=== PATIENT | female | born 1990 | race Two or more races ===

== ENCOUNTER 2025-03-11 13:52 | Outpatient (OUT) | payer BC, SELFPAY ==
--- OUTSIDE RECORDS SUMMARY | 2025-03-11 14:00 | XMS_ITS | Clinical Summary ---
Author Organization [facility] Healthcare Address [address] [place] [address] Care Team Providers Care Bowling Ball Grader Name Role Phone Corby Livingston DO Primary Care Provider [phone] Allergies Active Allergy Reactions Criticality Noted Date Comments Penicillins Anaphylaxis,Shortnes s of breath,Unknown High 02/28/2023 Sulfa Antibiotics Anaphylaxis,Shortnes s of breath,Unknown,Wheezing High 02/28/2023 Medications 27-1 MG tabletIndications: Take 1 tablet by mouth in the morning. Active Drospirenone (Slynd) 4 MG tabletIndications: Family planning counseling,Oral contraception initial prescription Take 1 tablet by mouth Daily 84 tablet 3 4 Active sertraline (Zoloft) 50 MG tabletIndications: Depression, unspecified depression type Take 1 tablet (50 mg) by mouth in the morning. 90 tablet 2 4 Active Family History Medical History Relation Name Comments Heart disease Father Hyperlipidemia Father Hypertension Father Stroke Father neurocardiogenic syncope Father Cancer Maternal Grandfather Diabetes Maternal Grandfather Rheum arthritis Maternal Grandmother Diabetes Mother Heart disease Mother Hypertension Mother Hypertension Other Polycystic ovary syndrome Other borderline diabetic Other Dementia Paternal Grandfather Stroke Paternal Grandfather Hyperlipidemia Sister Relation Name Status Comments Father Alive Maternal Grandfather Maternal Grandmother Mother Alive Other Paternal Grandfather Sister 1 sister Son Alive 2 sons Social History Tobacco Use Types Packs/Day Years Used Date Smoking Tobacco: Never Smokeless Tobacco: Never Alcohol Use Standard Drinks/Week Comments Not Currently 0 (1 standard drink = 0.6 oz pure alcohol) none with ; caffeine intake : 1-2 cups per day ; soda [place] Depression Scale Answer Date Recorded [place] Depression Scale Total 0 11/25/2023 The thought of harming myself has occurred to me . 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 on file Not on file Not on file Last Filed Vital Signs Vital Sign Reading Time Taken Comments Blood Pressure 110/74 11/25/2023 11:41 AM EST Pulse - - Temperature - - Respiratory Rate - - Oxygen Saturation - - Inhaled Oxygen Concentration - - Weight 76.2 kg (168 lb) 11/25/2023 11:41 AM EST Height 170.2 cm (5' 7 ) 02/28/2023 2:01 PM EDT Body Mass Index 26.31 02/28/2023 2:01 PM EDT Plan of Treatment Upcoming Encounters Date Type Department Care Team (Late st Contact Info) Description 04/05/2025 4:00 PM EDT Office Visit [facility] [address] [place] D [address] [address] Ester Bronson DO [address] [address] Health Maintenance Due Date Last Done Comments Pap Smear 03/16/2025 03/16/2022 Cervical Cancer Screening 03/29/2025 HPV/Cotest 03/29/2025 03/29/2020 Influenza Vaccine (Season Ended) 2025 Procedures Procedure Name Priority Date/Time Associated Diagnosis Comments PAP SMEAR Routine 03/16/2022 12:00 AM EDT THINPREP TIS PAP REFLEX HPV MRNA E6/E7 (80935) Routine 03/29/2020 from Last 3 Months or Most Recently Relevant to Health Maintenance Results * Pap Smear (03/16/2022 12:00 AM EDT) Swab Cervical swab / Unknown Ester Bronson DO LAB CYTOLOGY ORDERABLES Fi nal Result Performing Organization Address [facility] Co de Phone Number [facility] * THINPREP TIS PAP REFLEX HPV MRNA E6/E7 (86071) (03/29/2020) CLINICAL INFORMATION: None given [facility] LMP: None given [facility] PREV. PAP: None given [facility] PREV. BX: None given [facility] SOURCE: Cervix, Endocervix [facility] STATEMENT OF ADEQUACY: SEE COMMENT [facility] Comment: Satisfactory for evaluation. Endocervical/transformation zone component present. INTERPRETATION /RESULT: Negative for intraepithelial lesion or malignancy. [facility] COMMENT: This Pap test has been evaluated with computer assisted technology. [facility] CYTOTECHNOLOGI ST: SEE COMMENT See Note: [facility] Comment: Reference Range: ZL, CT(ASCP) CT screening location: [place] [address]. COMMENT SEE COMMENT [facility] Comment: EXPLANATORY NOTE: The Pap is a screening test for cervical cancer. It is not a diagnostic test and is subject to false negative and false positive results. It is most reliable when a satisfactory sample, regularly obtained, is submitted with relevant clinical findings and history, and when the Pap result is evaluated along with historic and current clinical information. 03/29/2020 Ester Bronson DO [facility] Final Resu lt Performing Organization Address [facility]/ZIP Co de Phone Number [facility] from Last 3 Months or Most Recently Relevant to Health Maintenance Care Teams Bowling Ball Grader Relationship Specialty Start Date End Date Corby Livingston DO PCP - General Internal Medicine 03/13/23
--- OUTSIDE RECORDS SUMMARY | 2025-03-11 14:00 | XMS_ITS | Clinical Summary ---
Author Organization [facility] Address [address] [place] [address] Phone Care Team Providers Care Medical Pathologist Name Role Phone Unavailable Primary Care Provider Unavailabl e Social History Tobacco Use Types Packs/Day Years Used Date Smoking Tobacco: Never Assessed Comments Unknown Sex and Gender Information Value Date Recorded Sex Assigned at Not on file Legal Sex Female 6:26 PM EST Gender Identity Not on file Sexual Orientation Not on file Plan of Treatment Not on file
--- NOTE | 2025-03-11 14:02 | US_ITS ---
[facility] [place] [id number] Patient Name: YOLANDE LEVIN MRN: [id number] date: 1990 Sex: F Assigned Patient Location: [place] Current Patient Location: [place] Accession/Order Number: [id number] Exam Date: 03/11/2025 15:23 Report Date: 03/11/2025 15:26 At the request of: APRIL COLES Procedure: US thyroid Thyroid ultrasound Reason for exam: Swelling. Mass. Comparison: none Technique: Grayscale and color Doppler images of the thyroid gland were obtained. Findings: The right lobe measures 5.5 x 1.5 x 1.2 cm. Left lobe measures 4.8 x 1.6 x 1.7 cm. Isthmus measures 1.6 mm. A hypoechoic nodule is seen involving the mid left lobe measuring 8 x 7 x 7 mm. No microcalcifications are noted. In the area of concern involving the neck, a presumed reactive lymph node is seen measuring 14 x 3 x 9 mm US/US thyroid Impression: Hypoechoic nodule mid left lobe of the thyroid gland measuring by 7 x 7 mm. Repeat ultrasound in one year is suggested. Next In the area of concern involving neck, presumed reactive lymph node is seen measuring 14 x 3 x 9 mm. Impression dictated by: Tonio Starkey Jr., D.O. 03/11/2025 3:26 PM Dictation Location: [place] [address] Electronically authenticated by: [id number] Y Date: 03/11/2025 15:26
== END 2025-03-11 13:53 | disposition home or self-care (01) ==
PROVIDERS: PCP Nurse Practitioner Family; Visit Provider Nurse Practitioner Family
DX: R22.0 Localized swelling, mass and lump, head (principal); R22.1 Localized swelling, mass and lump, neck; E04.1 Nontoxic single thyroid nodule
CPT/HCPCS: 76536